=== PATIENT | male | born 1955 | race Caucasian/White ===

== ENCOUNTER 2021-11-02 22:00 | Inpatient (IN) | payer MEDICARE, MEDICAID ==
[~2021-11-02] VITALS: Ht 180.3 cm; Wt 91.6 kg
[2021-11-02 22:00] VITALS: BP 151/70
[2021-11-02 22:30] VITALS: BP 151/70
[2021-11-02] MEDS ORDERED: NALOXONE HCL 0.4 MG/ML 1ML VIAL IV PRN (23:30)
[2021-11-02] MEDS ORDERED: BISACODYL 5MG TABLET PO PRN (23:30)
[2021-11-02] MEDS ORDERED: IPRATROPIUM/ALBUTEROL 0.5-3(2.5)MG/3ML NEB HHN PRN (23:30)
[2021-11-02] MEDS ORDERED: ACETAMINOPHEN 325MG TABLET PO PRN (23:30)
[2021-11-02] MEDS ORDERED: MORPHINE SULFATE 4 MG/ML CPJ (NOT FOR IM USE) IV PRN (23:30)
[2021-11-02] MEDS ORDERED: DEXTROSE 50% WATER 50ML SYRINGE IV PRN (23:30)
[2021-11-02] MEDS ORDERED: CLONIDINE 0.1MG TABLET PO PRN (23:30)
[2021-11-02] MEDS ORDERED: LISI40TA13 PO (23:42)
[2021-11-02] MEDS ORDERED: GABA-533 PO (23:42)
[2021-11-02] MEDS ORDERED: METO-539 PO (23:42)
[2021-11-02] MEDS ORDERED: FURO20TA4 PO (23:42)
[2021-11-02] MEDS ORDERED: PROT20 PO (23:42)
[2021-11-03] MEDS ORDERED: CLONIDINE 0.1MG TABLET PO PRN
[2021-11-03] MEDS: SODIUM CHLORIDE 0.9% 1,000 ML IV SCH ×3 (00:17→20:37)
[2021-11-03] MEDS: MORPHINE SULFATE 2 MG/ML CPJ (NOT FOR IM USE) IV PRN ×4 (00:48→17:08)
[2021-11-03] MEDS: CEFTRIAXONE 2 G in DEXTROSE 5% WATER 50 ML IV SCH ×2 (01:01→22:53)
[2021-11-03] MEDS ORDERED: NA PHOS,M-B/NA PHOS,DI-BA ENEMA 118ML PR ONE (02:45)
[2021-11-03] MEDS: GABAPENTIN 400MG CAPSULE PO SCH ×3 (05:42→22:17)
[2021-11-03] MEDS: METOPROLOL TARTRATE 50MG TABLET PO SCH ×3 (05:42→20:52)
[2021-11-03] MEDS: INSULIN LISPRO 100 UNITS/ML SUBCUT SCH ×4 (05:42→20:47)
[2021-11-03] MEDS: BLOOD SUGAR DIAGNOSTIC STRIP TEST SCH ×4 (05:42→20:48)
[2021-11-03 07:47] LABS: BASOPHILS % 0.4 % (0.0-2.0); EOSINOPHILS % 1.7 % (0.0-5.0); HEMATOCRIT. 26.2 % (42.0-52.0); HEMOGLOBIN. 8.3 g/dL (14.0-18.0); LYMPHOCYTES % 23.4 % (20.0-50.0); MEAN CORPUSCULAR HEMOGLOBIN 26.3 pg (28.0-32.0); MEAN CORPUSCULAR VOLUME 83.3 fL (80.0-94.0); MONOCYTES % 9.1 % (2.0-8.0); NEUTROPHILS % 65.4 % (40.0-76.0); PLATELET 521 x1000/uL (130-400); RED BLOOD CELL COUNT 3.15 mill/uL (4.7-6.1); RED CELL DISTRIBUTION WIDTH 16.7 % (11.6-14.6)
[2021-11-03 08:00] VITALS: BP 124/58
[2021-11-03 08:00] LABS: CHLORIDE 102 mEq/L (98-107)
[2021-11-03] MEDS: POLYETHYLENE GLYCOL 3350 (17GM) 1 DOSE PACK PO SCH (08:55)
[2021-11-03] MEDS: AMLODIPINE 2.5MG TABLET PO SCH ×2 (08:55→20:52)
[2021-11-03] MEDS: MAGNESIUM OXIDE 400MG TABLET PO SCH (08:55)
[2021-11-03] MEDS: LISINOPRIL 20MG TABLET PO SCH (08:55)
[2021-11-03] MEDS ORDERED: LACTULOSE 20G/30ML UDC PO SCH (09:00)
[2021-11-03] MEDS ORDERED: VANCOMYCIN 1G PREMIX 200 ML IV SCH (12:00)
[2021-11-03] MEDS ORDERED: CEFTRIAXONE 2 G in DEXTROSE 5% WATER 50 ML IV SCH (16:00)
[2021-11-03 20:00] VITALS: BP 109/54
[2021-11-03] MEDS: HYDROCODONE/ACETAMINOPHEN 10/325MG TABLET PO PRN (22:51)
[2021-11-04] MEDS ORDERED: VANCOMYCIN 1250MG in DEXTROSE 5% WATER 250ML IV SCH ×2
[2021-11-04] MEDS: METOPROLOL TARTRATE 50MG TABLET PO SCH ×3 (05:43→22:00)
[2021-11-04] MEDS: GABAPENTIN 400MG CAPSULE PO SCH ×3 (05:43→20:48)
[2021-11-04] MEDS: HYDROCODONE/ACETAMINOPHEN 10/325MG TABLET PO PRN ×2 (05:45→12:51)
[2021-11-04] MEDS: SODIUM CHLORIDE 0.9% 1,000 ML IV SCH ×2 (05:45→15:12)
[2021-11-04] MEDS: BLOOD SUGAR DIAGNOSTIC STRIP TEST SCH ×4 (05:46→20:49)
[2021-11-04 07:38] LABS: BASOPHILS % 0.5 % (0.0-2.0); EOSINOPHILS % 2.8 % (0.0-5.0); HEMATOCRIT. 26.3 % (42.0-52.0); HEMOGLOBIN. 8.5 g/dL (14.0-18.0); LYMPHOCYTES % 27.7 % (20.0-50.0); MEAN CORPUSCULAR HEMOGLOBIN 26.9 pg (28.0-32.0); MEAN CORPUSCULAR VOLUME 82.9 fL (80.0-94.0); MEAN PLATELET VOLUME 8.2 fl (7.4-10.4); MONOCYTES % 8.6 % (2.0-8.0); NEUTROPHILS % 60.4 % (40.0-76.0); PLATELET 469 x1000/uL (130-400); RED BLOOD CELL COUNT 3.17 mill/uL (4.7-6.1); RED CELL DISTRIBUTION WIDTH 17.2 % (11.6-14.6)
[2021-11-04 08:00] VITALS: BP 101/48
[2021-11-04 08:19] LABS: CHLORIDE 104 mEq/L (98-107)
[2021-11-04 08:32] LABS: TOTAL IRON BINDING CAPACITY 172 ug/dL (250-450)
[2021-11-04] MEDS: LISINOPRIL 20MG TABLET PO SCH (09:00)
[2021-11-04] MEDS: AMLODIPINE 2.5MG TABLET PO SCH ×2 (09:00→20:48)
[2021-11-04] MEDS: INSULIN LISPRO 100 UNITS/ML SUBCUT SCH ×4 (09:00→20:49)
[2021-11-04] MEDS: POLYETHYLENE GLYCOL 3350 (17GM) 1 DOSE PACK PO SCH (09:00)
[2021-11-04] MEDS: MORPHINE SULFATE 2 MG/ML CPJ (NOT FOR IM USE) IV PRN ×2 (10:10→15:12)
[2021-11-04] MEDS: MAGNESIUM OXIDE 400MG TABLET PO SCH (10:10)
[2021-11-04 10:56] LABS: PROSTRATE SPECIFIC AG TOTAL 3.33 ng/mL (0.0-4.0)
[2021-11-04 11:52] VITALS: BP 101/48
[2021-11-04 12:19] LABS: FOLIC ACID (FOLATE) SERUM 5.6 ng/mL (>5.38)
[2021-11-04] MEDS: FERROUS SULFATE 325MG TABLET PO SCH ×2 (12:50→17:40)
[2021-11-04 20:00] VITALS: BP 130/64
[2021-11-05] MEDS: CEFTRIAXONE 2 G in DEXTROSE 5% WATER 50 ML IV SCH ×2 (00:13→23:29)
[2021-11-05] MEDS: HYDROCODONE/ACETAMINOPHEN 10/325MG TABLET PO PRN ×2 (00:13→05:53)
[2021-11-05] MEDS: SODIUM CHLORIDE 0.9% 1,000 ML IV SCH ×3 (02:07→20:48)
[2021-11-05] MEDS: METOPROLOL TARTRATE 50MG TABLET PO SCH ×3 (05:52→22:00)
[2021-11-05 06:04] LABS: CHLORIDE 106 mEq/L (98-107)
[2021-11-05] MEDS: INSULIN LISPRO 100 UNITS/ML SUBCUT SCH ×4 (06:12→20:47)
[2021-11-05] MEDS: GABAPENTIN 400MG CAPSULE PO SCH ×3 (06:12→20:48)
[2021-11-05] MEDS: BLOOD SUGAR DIAGNOSTIC STRIP TEST SCH ×4 (06:12→20:45)
[2021-11-05 07:12] LABS: BASOPHILS % 0.5 % (0.0-2.0); EOSINOPHILS % 4.5 % (0.0-5.0); HEMATOCRIT. 27.4 % (42.0-52.0); HEMOGLOBIN. 8.6 g/dL (14.0-18.0); LYMPHOCYTES % 27.9 % (20.0-50.0); MEAN CORPUSCULAR HEMOGLOBIN 26.8 pg (28.0-32.0); MEAN CORPUSCULAR VOLUME 85.5 fL (80.0-94.0); MONOCYTES % 8.8 % (2.0-8.0); NEUTROPHILS % 58.3 % (40.0-76.0); PLATELET 401 x1000/uL (130-400); RED CELL DISTRIBUTION WIDTH 17.1 % (11.6-14.6)
[2021-11-05 08:00] VITALS: BP 135/79
[2021-11-05] MEDS: POLYETHYLENE GLYCOL 3350 (17GM) 1 DOSE PACK PO SCH (09:00)
[2021-11-05] MEDS: LISINOPRIL 20MG TABLET PO SCH (09:48)
[2021-11-05] MEDS: MAGNESIUM OXIDE 400MG TABLET PO SCH (09:48)
[2021-11-05] MEDS: FERROUS SULFATE 325MG TABLET PO SCH ×3 (09:48→17:38)
[2021-11-05] MEDS: ASCORBIC ACID 500 MG TABLET PO SCH (09:48)
[2021-11-05] MEDS: AMLODIPINE 2.5MG TABLET PO SCH ×2 (09:49→20:49)
[2021-11-05] MEDS: MORPHINE SULFATE 2 MG/ML CPJ (NOT FOR IM USE) IV PRN ×2 (09:49→12:11)
[2021-11-05] MEDS ORDERED: BACLOFEN 10MG TABLET PO PRN (11:15)
[2021-11-05] MEDS: LIDOCAINE HCL 4% CREAM 76GM TUBE TP SCH ×2 (12:11→17:00)
[2021-11-05] MEDS: CARISOPRODOL 350 MG TABLET PO PRN (15:15)
[2021-11-05] MEDS: CYANOCOBALAMIN 1000MCG/ML VIAL IM SCH (15:16)
[2021-11-05 20:00] VITALS: BP 116/65
[2021-11-06] MEDS: HYDROCODONE/ACETAMINOPHEN 10/325MG TABLET PO PRN ×2 (03:12→09:12)
[2021-11-06] MEDS: METOPROLOL TARTRATE 50MG TABLET PO SCH ×3 (06:00→22:00)
[2021-11-06] MEDS: BLOOD SUGAR DIAGNOSTIC STRIP TEST SCH ×4 (06:18→21:47)
[2021-11-06] MEDS: GABAPENTIN 400MG CAPSULE PO SCH ×3 (06:19→21:49)
[2021-11-06] MEDS: SODIUM CHLORIDE 0.9% 1,000 ML IV SCH ×2 (06:19→18:40)
[2021-11-06 06:36] LABS: BASOPHILS % 0.9 % (0.0-2.0); EOSINOPHILS % 5.8 % (0.0-5.0); HEMATOCRIT. 25.3 % (42.0-52.0); HEMOGLOBIN. 8.5 g/dL (14.0-18.0); MEAN CORPUSCULAR HEMOGLOBIN 27.6 pg (28.0-32.0); MEAN CORPUSCULAR VOLUME 81.7 fL (80.0-94.0); MEAN PLATELET VOLUME 7.9 fl (7.4-10.4); MONOCYTES % 8.3 % (2.0-8.0); PLATELET 423 x1000/uL (130-400); RED BLOOD CELL COUNT 3.09 mill/uL (4.7-6.1); RED CELL DISTRIBUTION WIDTH 17.7 % (11.6-14.6)
[2021-11-06 07:37] LABS: CHLORIDE 103 mEq/L (98-107)
[2021-11-06 08:00] VITALS: BP 152/76
[2021-11-06] MEDS: LIDOCAINE HCL 4% CREAM 76GM TUBE TP SCH ×2 (09:00→18:00)
[2021-11-06] MEDS: INSULIN LISPRO 100 UNITS/ML SUBCUT SCH ×4 (09:00→21:53)
[2021-11-06] MEDS: CYANOCOBALAMIN 1000MCG/ML VIAL IM SCH (09:11)
[2021-11-06] MEDS: CARISOPRODOL 350 MG TABLET PO PRN ×2 (09:11→18:31)
[2021-11-06] MEDS: MAGNESIUM OXIDE 400MG TABLET PO SCH (09:12)
[2021-11-06] MEDS: FERROUS SULFATE 325MG TABLET PO SCH ×3 (09:12→18:31)
[2021-11-06] MEDS: ASCORBIC ACID 500 MG TABLET PO SCH (09:12)
[2021-11-06] MEDS: AMLODIPINE 2.5MG TABLET PO SCH ×2 (09:13→21:49)
[2021-11-06] MEDS: LISINOPRIL 20MG TABLET PO SCH (09:14)
[2021-11-06] MEDS: POLYETHYLENE GLYCOL 3350 (17GM) 1 DOSE PACK PO SCH (09:14)
[2021-11-06] MEDS: MORPHINE SULFATE 2 MG/ML CPJ (NOT FOR IM USE) IV PRN (14:13)
[2021-11-06] MEDS: MORPHINE SULFATE 15MG TABLET SR PO SCH ×2 (18:36→21:48)
[2021-11-06 20:00] VITALS: BP 146/86
[2021-11-06] MEDS: CEFTRIAXONE 2 G in DEXTROSE 5% WATER 50 ML IV SCH (22:55)
[2021-11-07] MEDS: SODIUM CHLORIDE 0.9% 1,000 ML IV SCH ×3 (03:30→22:50)
[2021-11-07] MEDS: METOPROLOL TARTRATE 50MG TABLET PO SCH ×3 (06:00→21:31)
[2021-11-07] MEDS: INSULIN LISPRO 100 UNITS/ML SUBCUT SCH ×4 (06:15→21:00)
[2021-11-07] MEDS: BLOOD SUGAR DIAGNOSTIC STRIP TEST SCH ×4 (06:15→21:31)
[2021-11-07] MEDS: GABAPENTIN 400MG CAPSULE PO SCH ×3 (06:17→21:30)
[2021-11-07] MEDS: MORPHINE SULFATE 15MG TABLET SR PO SCH ×3 (06:17→21:38)
[2021-11-07 08:00] VITALS: BP 133/64
[2021-11-07] MEDS: LIDOCAINE HCL 4% CREAM 76GM TUBE TP SCH ×2 (09:00→17:00)
[2021-11-07] MEDS: AMLODIPINE 2.5MG TABLET PO SCH ×2 (09:56→21:00)
[2021-11-07] MEDS: MAGNESIUM OXIDE 400MG TABLET PO SCH (09:56)
[2021-11-07] MEDS: ASCORBIC ACID 500 MG TABLET PO SCH (09:56)
[2021-11-07] MEDS: POLYETHYLENE GLYCOL 3350 (17GM) 1 DOSE PACK PO SCH (09:56)
[2021-11-07] MEDS: FERROUS SULFATE 325MG TABLET PO SCH ×3 (09:56→18:13)
[2021-11-07] MEDS: CYANOCOBALAMIN 1000MCG/ML VIAL IM SCH (09:56)
[2021-11-07] MEDS: LISINOPRIL 20MG TABLET PO SCH (09:56)
[2021-11-07] MEDS: ONDANSETRON HCL 4MG/2ML INJ IV PRN (13:24)
[2021-11-07] MEDS: CARISOPRODOL 350 MG TABLET PO PRN (18:17)
[2021-11-07 20:00] VITALS: BP 112/67
[2021-11-07] MEDS: CEFTRIAXONE 2 G in DEXTROSE 5% WATER 50 ML IV SCH (22:50)
[2021-11-08] MEDS: METOPROLOL TARTRATE 50MG TABLET PO SCH ×3 (05:35→20:14)
[2021-11-08] MEDS: MORPHINE SULFATE 15MG TABLET SR PO SCH ×3 (05:36→22:27)
[2021-11-08] MEDS: GABAPENTIN 400MG CAPSULE PO SCH ×3 (05:39→22:26)
[2021-11-08] MEDS: BLOOD SUGAR DIAGNOSTIC STRIP TEST SCH ×4 (05:46→20:18)
[2021-11-08 08:00] VITALS: BP 140/70
[2021-11-08] MEDS: LIDOCAINE HCL 4% CREAM 76GM TUBE TP SCH ×2 (09:00→17:00)
[2021-11-08] MEDS: POLYETHYLENE GLYCOL 3350 (17GM) 1 DOSE PACK PO SCH (09:00)
[2021-11-08] MEDS: INSULIN LISPRO 100 UNITS/ML SUBCUT SCH ×4 (09:00→20:18)
[2021-11-08] MEDS: CYANOCOBALAMIN 1000MCG/ML VIAL IM SCH (10:14)
[2021-11-08] MEDS: FERROUS SULFATE 325MG TABLET PO SCH ×3 (10:15→18:24)
[2021-11-08] MEDS: AMLODIPINE 2.5MG TABLET PO SCH ×2 (10:15→20:15)
[2021-11-08] MEDS: ASCORBIC ACID 500 MG TABLET PO SCH (10:16)
[2021-11-08] MEDS: LISINOPRIL 20MG TABLET PO SCH (10:16)
[2021-11-08] MEDS: CARISOPRODOL 350 MG TABLET PO PRN (10:21)
[2021-11-08] MEDS: MAGNESIUM OXIDE 400MG TABLET PO SCH (10:28)
[2021-11-08] MEDS: SODIUM CHLORIDE 0.9% 1,000 ML IV SCH ×2 (11:29→20:13)
[2021-11-08 19:57] VITALS: BP 112/54
[2021-11-08] MEDS: HYDROCODONE/ACETAMINOPHEN 10/325MG TABLET PO PRN (20:00)
[2021-11-08] MEDS: CEFTRIAXONE 2 G in DEXTROSE 5% WATER 50 ML IV SCH (22:28)
[2021-11-09] MEDS: GABAPENTIN 400MG CAPSULE PO SCH ×3 (05:23→21:36)
[2021-11-09] MEDS: MORPHINE SULFATE 15MG TABLET SR PO SCH ×4 (05:24→23:45)
[2021-11-09] MEDS: SODIUM CHLORIDE 0.9% 1,000 ML IV SCH ×2 (05:25→16:59)
[2021-11-09] MEDS: BLOOD SUGAR DIAGNOSTIC STRIP TEST SCH ×4 (05:25→21:35)
[2021-11-09] MEDS: METOPROLOL TARTRATE 50MG TABLET PO SCH ×3 (05:25→21:36)
[2021-11-09] MEDS: INSULIN LISPRO 100 UNITS/ML SUBCUT SCH ×4 (05:28→21:00)
[2021-11-09 08:00] VITALS: BP 162/80
[2021-11-09] MEDS: MAGNESIUM OXIDE 400MG TABLET PO SCH (08:32)
[2021-11-09] MEDS: CYANOCOBALAMIN 1000MCG/ML VIAL IM SCH (08:33)
[2021-11-09] MEDS: HYDROCODONE/ACETAMINOPHEN 10/325MG TABLET PO PRN ×2 (08:33→16:51)
[2021-11-09] MEDS: FERROUS SULFATE 325MG TABLET PO SCH ×3 (08:33→17:50)
[2021-11-09] MEDS: LISINOPRIL 20MG TABLET PO SCH (08:33)
[2021-11-09] MEDS: ASCORBIC ACID 500 MG TABLET PO SCH (08:34)
[2021-11-09] MEDS: POLYETHYLENE GLYCOL 3350 (17GM) 1 DOSE PACK PO SCH (08:34)
[2021-11-09] MEDS: LIDOCAINE HCL 4% CREAM 76GM TUBE TP SCH ×2 (08:35→17:00)
[2021-11-09] MEDS: AMLODIPINE 2.5MG TABLET PO SCH ×2 (08:35→21:35)
[2021-11-09] MEDS: CARISOPRODOL 350 MG TABLET PO PRN (10:05)
[2021-11-09 15:08] LABS: 25-HYDROXY VITAMIN D3 6.5 ng/mL (.)
[2021-11-09 20:00] VITALS: BP 138/66
[2021-11-09] MEDS: CEFTRIAXONE 2 G in DEXTROSE 5% WATER 50 ML IV SCH (22:50)
[2021-11-10] MEDS: CARISOPRODOL 350 MG TABLET PO PRN (00:54)
[2021-11-10] MEDS: SODIUM CHLORIDE 0.9% 1,000 ML IV SCH ×3 (00:56→22:32)
[2021-11-10] MEDS: GABAPENTIN 400MG CAPSULE PO SCH ×3 (06:10→22:32)
[2021-11-10] MEDS: METOPROLOL TARTRATE 50MG TABLET PO SCH ×3 (06:11→22:34)
[2021-11-10] MEDS: MORPHINE SULFATE 15MG TABLET SR PO SCH ×3 (06:12→22:35)
[2021-11-10] MEDS: BLOOD SUGAR DIAGNOSTIC STRIP TEST SCH ×4 (06:30→20:24)
[2021-11-10] MEDS: INSULIN LISPRO 100 UNITS/ML SUBCUT SCH ×4 (06:30→20:24)
[2021-11-10 06:47] LABS: CHLORIDE 105 mEq/L (98-107)
[2021-11-10 08:00] VITALS: BP 119/64
[2021-11-10] MEDS: FERROUS SULFATE 325MG TABLET PO SCH ×3 (09:00→16:43)
[2021-11-10] MEDS: MAGNESIUM OXIDE 400MG TABLET PO SCH (09:00)
[2021-11-10] MEDS: AMLODIPINE 2.5MG TABLET PO SCH ×2 (09:00→20:22)
[2021-11-10] MEDS: LISINOPRIL 20MG TABLET PO SCH (09:00)
[2021-11-10] MEDS: ASCORBIC ACID 500 MG TABLET PO SCH (09:00)
[2021-11-10] MEDS: CYANOCOBALAMIN 1000MCG/ML VIAL IM SCH (09:01)
[2021-11-10] MEDS: POLYETHYLENE GLYCOL 3350 (17GM) 1 DOSE PACK PO SCH (09:01)
[2021-11-10] MEDS: HYDROCODONE/ACETAMINOPHEN 10/325MG TABLET PO PRN ×2 (09:09→16:44)
[2021-11-10 11:05] LABS: HEMOGLOBIN. 8.1 g/dL (14.0-18.0); MEAN CORPUSCULAR HEMOGLOBIN 27.4 pg (28.0-32.0); MEAN CORPUSCULAR VOLUME 84.7 fL (80.0-94.0); MEAN PLATELET VOLUME 8.3 fl (7.4-10.4); MONOCYTES % 8.6 % (2.0-8.0); NEUTROPHILS % 51.4 % (40.0-76.0); PLATELET 292 x1000/uL (130-400); RED BLOOD CELL COUNT 2.95 mill/uL (4.7-6.1); RED CELL DISTRIBUTION WIDTH 17.6 % (11.6-14.6)
[2021-11-10] MEDS ORDERED: ERGOCALCIFEROL 50000UNITS CAPSULE PO SCH (13:00)
[2021-11-10] MEDS ORDERED: LACTULOSE 20G/30ML UDC PO SCH (13:00)
[2021-11-10] MEDS: ONDANSETRON HCL 4MG/2ML INJ IV PRN ×2 (13:25→16:43)
[2021-11-10 20:00] VITALS: BP 121/62
[2021-11-10] MEDS ORDERED: LISI20TA31 PO (21:41)
[2021-11-10] MEDS ORDERED: ALPR2TAB97 PO (21:43)
[2021-11-10] MEDS ORDERED: HYDR-4009 PO ×2 (21:44→21:45)
[2021-11-10] MEDS ORDERED: ZOLP10TA2 PO (21:48)
[2021-11-10] MEDS ORDERED: CITA40TA69 PO (21:49)
[2021-11-10] MEDS: LIDOCAINE HCL 4% CREAM 76GM TUBE TP SCH (22:32)
[2021-11-10] MEDS: CEFTRIAXONE 2 G in DEXTROSE 5% WATER 50 ML IV SCH (22:35)
[2021-11-11] MEDS: GABAPENTIN 400MG CAPSULE PO SCH ×3 (05:25→21:46)
[2021-11-11] MEDS: MORPHINE SULFATE 15MG TABLET SR PO SCH ×3 (05:25→21:46)
[2021-11-11] MEDS: METOPROLOL TARTRATE 50MG TABLET PO SCH ×3 (05:25→22:00)
[2021-11-11] MEDS: BLOOD SUGAR DIAGNOSTIC STRIP TEST SCH ×4 (05:26→21:43)
[2021-11-11] MEDS: INSULIN LISPRO 100 UNITS/ML SUBCUT SCH ×4 (05:28→21:00)
[2021-11-11] MEDS: SODIUM CHLORIDE 0.9% 1,000 ML IV SCH ×2 (06:13→17:30)
[2021-11-11 08:00] VITALS: BP 149/65
[2021-11-11] MEDS: MAGNESIUM OXIDE 400MG TABLET PO SCH (09:00)
[2021-11-11] MEDS: FERROUS SULFATE 325MG TABLET PO SCH ×3 (09:00→17:15)
[2021-11-11] MEDS: POLYETHYLENE GLYCOL 3350 (17GM) 1 DOSE PACK PO SCH (09:00)
[2021-11-11] MEDS: AMLODIPINE 2.5MG TABLET PO SCH ×2 (09:00→21:45)
[2021-11-11] MEDS: LISINOPRIL 20MG TABLET PO SCH (09:00)
[2021-11-11] MEDS: ASCORBIC ACID 500 MG TABLET PO SCH (09:00)
[2021-11-11] MEDS: LIDOCAINE HCL 4% CREAM 76GM TUBE TP SCH ×2 (09:00→17:15)
[2021-11-11] MEDS: CYANOCOBALAMIN 1000MCG/ML VIAL IM SCH (09:00)
[2021-11-11] MEDS: HYDROCODONE/ACETAMINOPHEN 10/325MG TABLET PO PRN (10:14)
[2021-11-11] MEDS: ONDANSETRON HCL 4MG/2ML INJ IV PRN (12:51)
[2021-11-11] MEDS: CARISOPRODOL 350 MG TABLET PO PRN (12:55)
[2021-11-11 20:00] VITALS: BP 115/58
[2021-11-12] MEDS: CEFTRIAXONE 2 G in DEXTROSE 5% WATER 50 ML IV SCH ×2 (00:27→22:32)
[2021-11-12] MEDS: SODIUM CHLORIDE 0.9% 1,000 ML IV SCH ×3 (02:10→22:33)
[2021-11-12] MEDS: HYDROCODONE/ACETAMINOPHEN 10/325MG TABLET PO PRN ×2 (02:15→09:00)
[2021-11-12 05:44] LABS: BASOPHILS % 0.8 % (0.0-2.0); EOSINOPHILS % 9.6 % (0.0-5.0); HEMATOCRIT. 23.8 % (42.0-52.0); HEMOGLOBIN. 7.6 g/dL (14.0-18.0); LYMPHOCYTES % 31.9 % (20.0-50.0); MEAN CORPUSCULAR HEMOGLOBIN 26.7 pg (28.0-32.0); MEAN CORPUSCULAR VOLUME 83.7 fL (80.0-94.0); MEAN PLATELET VOLUME 8.5 fl (7.4-10.4); MONOCYTES % 9.5 % (2.0-8.0); NEUTROPHILS % 48.2 % (40.0-76.0); PLATELET 295 x1000/uL (130-400); RED BLOOD CELL COUNT 2.84 mill/uL (4.7-6.1); RED CELL DISTRIBUTION WIDTH 17.7 % (11.6-14.6)
[2021-11-12] MEDS: METOPROLOL TARTRATE 50MG TABLET PO SCH ×3 (06:00→22:00)
[2021-11-12] MEDS: BLOOD SUGAR DIAGNOSTIC STRIP TEST SCH ×4 (06:28→21:55)
[2021-11-12] MEDS: GABAPENTIN 400MG CAPSULE PO SCH ×3 (06:36→21:46)
[2021-11-12] MEDS: MORPHINE SULFATE 15MG TABLET SR PO SCH ×3 (06:39→21:48)
[2021-11-12 07:15] LABS: CHLORIDE 105 mEq/L (98-107)
[2021-11-12 08:00] VITALS: BP 134/68
[2021-11-12] MEDS: MAGNESIUM OXIDE 400MG TABLET PO SCH (08:58)
[2021-11-12] MEDS: POLYETHYLENE GLYCOL 3350 (17GM) 1 DOSE PACK PO SCH (08:58)
[2021-11-12] MEDS: ASCORBIC ACID 500 MG TABLET PO SCH ×2 (08:58→18:10)
[2021-11-12] MEDS: CYANOCOBALAMIN 1000MCG/ML VIAL IM SCH (08:58)
[2021-11-12] MEDS: FERROUS SULFATE 325MG TABLET PO SCH ×3 (08:58→18:10)
[2021-11-12] MEDS: LISINOPRIL 20MG TABLET PO SCH (08:59)
[2021-11-12] MEDS: AMLODIPINE 2.5MG TABLET PO SCH ×2 (08:59→21:47)
[2021-11-12] MEDS: INSULIN LISPRO 100 UNITS/ML SUBCUT SCH ×4 (09:00→21:54)
[2021-11-12] MEDS: LIDOCAINE HCL 4% CREAM 76GM TUBE TP SCH ×2 (09:00→17:00)
[2021-11-12] MEDS: PANTOPRAZOLE SODIUM 40 MG/VIAL IV SCH (17:37)
[2021-11-12 18:00] LABS: INR 1.1; PROTHROMBIN TIME 11.9 sec (9.6-11.0)
[2021-11-12] MEDS: HYDROCODONE/APAP 7.5/325MG 1 TAB TABLET PO PRN (18:11)
[2021-11-12 20:25] VITALS: BP 138/66
[2021-11-13] MEDS: METOPROLOL TARTRATE 50MG TABLET PO SCH ×3 (06:00→22:02)
[2021-11-13 06:07] LABS: CHLORIDE 104 mEq/L (98-107)
[2021-11-13] MEDS: GABAPENTIN 400MG CAPSULE PO SCH ×3 (06:18→22:03)
[2021-11-13] MEDS: MORPHINE SULFATE 15MG TABLET SR PO SCH ×3 (06:19→22:04)
[2021-11-13] MEDS: BLOOD SUGAR DIAGNOSTIC STRIP TEST SCH ×4 (06:20→21:58)
[2021-11-13 06:46] LABS: BASOPHILS % 0.5 % (0.0-2.0); EOSINOPHILS % 9.6 % (0.0-5.0); HEMATOCRIT. 25.1 % (42.0-52.0); HEMOGLOBIN. 8.3 g/dL (14.0-18.0); MEAN CORPUSCULAR HEMOGLOBIN 27.7 pg (28.0-32.0); MEAN CORPUSCULAR VOLUME 84.4 fL (80.0-94.0); MEAN PLATELET VOLUME 8.6 fl (7.4-10.4); MONOCYTES % 9.8 % (2.0-8.0); NEUTROPHILS % 44.1 % (40.0-76.0); PLATELET 309 x1000/uL (130-400); RED BLOOD CELL COUNT 2.98 mill/uL (4.7-6.1); RED CELL DISTRIBUTION WIDTH 18.2 % (11.6-14.6)
[2021-11-13 08:00] VITALS: BP 150/86
[2021-11-13] MEDS: MAGNESIUM OXIDE 400MG TABLET PO SCH (08:47)
[2021-11-13] MEDS: PANTOPRAZOLE SODIUM 40 MG/VIAL IV SCH (08:47)
[2021-11-13] MEDS: AMLODIPINE 2.5MG TABLET PO SCH ×2 (08:47→22:03)
[2021-11-13] MEDS: ASCORBIC ACID 500 MG TABLET PO SCH ×2 (08:47→18:03)
[2021-11-13] MEDS: LISINOPRIL 20MG TABLET PO SCH (08:47)
[2021-11-13] MEDS: FERROUS SULFATE 325MG TABLET PO SCH ×3 (08:47→18:03)
[2021-11-13] MEDS: POLYETHYLENE GLYCOL 3350 (17GM) 1 DOSE PACK PO SCH (08:47)
[2021-11-13] MEDS: LIDOCAINE HCL 4% CREAM 76GM TUBE TP SCH ×2 (08:48→17:00)
[2021-11-13] MEDS: INSULIN LISPRO 100 UNITS/ML SUBCUT SCH ×4 (08:48→21:00)
[2021-11-13] MEDS: SODIUM CHLORIDE 0.9% 1,000 ML IV SCH ×2 (08:48→19:30)
[2021-11-13] MEDS: CARISOPRODOL 350 MG TABLET PO PRN (10:48)
[2021-11-13] MEDS: HYDROCODONE/APAP 7.5/325MG 1 TAB TABLET PO PRN (10:50)
[2021-11-13] MEDS ORDERED: OXYCODONE HCL 5MG TABLET PO PRN (11:15)
[2021-11-13] MEDS: HYDROCODONE/ACETAMINOPHEN 10/325MG TABLET PO PRN (14:45)
[2021-11-13 20:00] VITALS: BP 125/72
[2021-11-13] MEDS: CEFTRIAXONE 2 G in DEXTROSE 5% WATER 50 ML IV SCH (22:01)
[2021-11-14] MEDS: BLOOD SUGAR DIAGNOSTIC STRIP TEST SCH ×4 (06:28→21:00)
[2021-11-14] MEDS: INSULIN LISPRO 100 UNITS/ML SUBCUT SCH ×4 (06:28→21:00)
[2021-11-14] MEDS: SODIUM CHLORIDE 0.9% 1,000 ML IV SCH ×3 (06:28→23:18)
[2021-11-14] MEDS: GABAPENTIN 400MG CAPSULE PO SCH ×3 (06:31→21:27)
[2021-11-14] MEDS: METOPROLOL TARTRATE 50MG TABLET PO SCH ×3 (06:32→21:28)
[2021-11-14] MEDS: MORPHINE SULFATE 15MG TABLET SR PO SCH ×4 (06:32→22:00)
[2021-11-14 06:47] LABS: BASOPHILS % 0.8 % (0.0-2.0); EOSINOPHILS % 10.5 % (0.0-5.0); HEMOGLOBIN. 8.2 g/dL (14.0-18.0); LYMPHOCYTES % 30.1 % (20.0-50.0); MEAN CORPUSCULAR HEMOGLOBIN 27.4 pg (28.0-32.0); MEAN CORPUSCULAR VOLUME 83.4 fL (80.0-94.0); MEAN PLATELET VOLUME 8.4 fl (7.4-10.4); MONOCYTES % 8.9 % (2.0-8.0); NEUTROPHILS % 49.7 % (40.0-76.0); PLATELET 297 x1000/uL (130-400); RED CELL DISTRIBUTION WIDTH 17.9 % (11.6-14.6)
[2021-11-14 07:25] LABS: CHLORIDE 105 mEq/L (98-107)
[2021-11-14 08:00] VITALS: BP 143/80
[2021-11-14] MEDS: LIDOCAINE HCL 4% CREAM 76GM TUBE TP SCH ×2 (09:00→16:51)
[2021-11-14] MEDS: AMLODIPINE 2.5MG TABLET PO SCH ×2 (09:05→21:28)
[2021-11-14] MEDS: MAGNESIUM OXIDE 400MG TABLET PO SCH (09:05)
[2021-11-14] MEDS: LISINOPRIL 20MG TABLET PO SCH (09:05)
[2021-11-14] MEDS: FERROUS SULFATE 325MG TABLET PO SCH ×3 (09:05→16:57)
[2021-11-14] MEDS: PANTOPRAZOLE SODIUM 40 MG/VIAL IV SCH (09:05)
[2021-11-14] MEDS: ASCORBIC ACID 500 MG TABLET PO SCH ×2 (09:05→16:56)
[2021-11-14] MEDS: POLYETHYLENE GLYCOL 3350 (17GM) 1 DOSE PACK PO SCH (09:06)
[2021-11-14] MEDS: HYDROCODONE/ACETAMINOPHEN 10/325MG TABLET PO PRN ×3 (09:06→21:43)
[2021-11-14 20:00] VITALS: BP 132/80
[2021-11-14] MEDS: CEFTRIAXONE 2 G in DEXTROSE 5% WATER 50 ML IV SCH (23:17)
[2021-11-15] MEDS: MORPHINE SULFATE 15MG TABLET SR PO SCH ×2 (06:00→12:40)
[2021-11-15 06:29] LABS: CHLORIDE 104 mEq/L (98-107)
[2021-11-15] MEDS: BLOOD SUGAR DIAGNOSTIC STRIP TEST SCH ×2 (06:30→11:15)
[2021-11-15 06:52] LABS: BASOPHILS % 0.6 % (0.0-2.0); EOSINOPHILS % 9.9 % (0.0-5.0); HEMATOCRIT. 25.5 % (42.0-52.0); HEMOGLOBIN. 8.4 g/dL (14.0-18.0); LYMPHOCYTES % 30.8 % (20.0-50.0); MEAN CORPUSCULAR HEMOGLOBIN 27.8 pg (28.0-32.0); MEAN CORPUSCULAR VOLUME 84.5 fL (80.0-94.0); MEAN PLATELET VOLUME 8.8 fl (7.4-10.4); MONOCYTES % 8.5 % (2.0-8.0); NEUTROPHILS % 50.2 % (40.0-76.0); PLATELET 307 x1000/uL (130-400); RED BLOOD CELL COUNT 3.02 mill/uL (4.7-6.1); RED CELL DISTRIBUTION WIDTH 18.1 % (11.6-14.6)
[2021-11-15] MEDS: METOPROLOL TARTRATE 50MG TABLET PO SCH ×2 (06:58→12:48)
[2021-11-15] MEDS: GABAPENTIN 400MG CAPSULE PO SCH ×2 (06:58→14:52)
[2021-11-15] MEDS: HYDROCODONE/ACETAMINOPHEN 10/325MG TABLET PO PRN ×2 (06:59→12:48)
[2021-11-15 08:00] VITALS: BP 149/69
[2021-11-15] MEDS ORDERED: ZOLP10TA2 PO (08:37)
[2021-11-15] MEDS ORDERED: HYDR-4009 PO (08:37)
[2021-11-15] MEDS ORDERED: AMLO2.5T45 PO (08:37)
[2021-11-15] MEDS ORDERED: METO-539 PO (08:37)
[2021-11-15] MEDS ORDERED: FERR-63 PO (08:37)
[2021-11-15] MEDS ORDERED: ASCO500T20 PO (08:37)
[2021-11-15] MEDS ORDERED: CHOL400D7 MT (08:37)
[2021-11-15] MEDS ORDERED: ALPR2TAB97 PO (08:37)
[2021-11-15] MEDS ORDERED: BACL-141 MT (08:37)
[2021-11-15] MEDS: INSULIN LISPRO 100 UNITS/ML SUBCUT SCH ×2 (09:00→12:30)
[2021-11-15] MEDS: POLYETHYLENE GLYCOL 3350 (17GM) 1 DOSE PACK PO SCH (09:00)
[2021-11-15] MEDS: LIDOCAINE HCL 4% CREAM 76GM TUBE TP SCH (09:00)
[2021-11-15] MEDS: CARISOPRODOL 350 MG TABLET PO PRN (10:04)
[2021-11-15] MEDS: PANTOPRAZOLE SODIUM 40 MG/VIAL IV SCH (10:04)
[2021-11-15] MEDS: ASCORBIC ACID 500 MG TABLET PO SCH (10:04)
[2021-11-15] MEDS: FERROUS SULFATE 325MG TABLET PO SCH ×2 (10:04→12:48)
[2021-11-15] MEDS: LISINOPRIL 20MG TABLET PO SCH (10:05)
[2021-11-15] MEDS: MAGNESIUM OXIDE 400MG TABLET PO SCH (10:05)
[2021-11-15] MEDS: AMLODIPINE 2.5MG TABLET PO SCH (10:05)
[2021-11-15] MEDS: SODIUM CHLORIDE 0.9% 1,000 ML IV SCH (11:30)
[2021-11-15 14:27] VITALS: BP 120/75
== END 2021-11-15 15:00 | disposition home health service (06) | DRG 95 ==
PROVIDERS: ADMIT Physical Medicine & Rehabilitation Spinal Cord Injury Medicine; ATTEND Internal Medicine
DX: G06.1 Intraspinal abscess and granuloma (principal); G82.20 Paraplegia, unspecified; G95.20 Unspecified cord compression; M46.26 Osteomyelitis of vertebra, lumbar region; M46.46 Discitis, unspecified, lumbar region; E11.69 Type 2 diabetes mellitus with other specified complication; D64.9 Anemia, unspecified; E11.40 Type 2 diabetes mellitus with diabetic neuropathy, unspecified; E11.51 Type 2 diabetes mellitus with diabetic peripheral angiopathy without gangrene; E55.9 Vitamin D deficiency, unspecified; E61.1 Iron deficiency; F39 Unspecified mood [affective] disorder; K70.30 Alcoholic cirrhosis of liver without ascites; J44.9 Chronic obstructive pulmonary disease, unspecified; I25.10 Atherosclerotic heart disease of native coronary artery without angina pectoris; I10 Essential (primary) hypertension; G89.4 Chronic pain syndrome; Z98.1 Arthrodesis status; Z87.891 Personal history of nicotine dependence; Z86.73 Personal history of transient ischemic attack (TIA), and cerebral infarction without residual deficits; Z79.4 Long term (current) use of insulin; Z89.431 Acquired absence of right foot; R53.81 Other malaise; R26.9 Unspecified abnormalities of gait and mobility; R25.2 Cramp and spasm; E53.8 Deficiency of other specified B group vitamins
CPT/HCPCS: 36415; 76700; 80048; 80053; 80202; 82270; 82306; 82607; 82728; 82746; 82962; 83540; 83550; 84134; 84153; 84443; 85025; 85044; 93005; 93970; 93976; 97110; 97112; 97116; 97140; 97150; 97162; 97166; 97530; 97535; C9113; J0696; J1815; J2270; J2405; J3370; J3420; J7030; J7060; G0103